=== PATIENT | male | born 1965 | race Caucasian/White ===

== ENCOUNTER 2021-04-28 08:44 | Day surgery (SDC) | payer OTHER ==
[2021-04-25 11:02] VITALS: BMI 30.1
[2021-04-28 09:11] VITALS: TEMP 97.8
[2021-04-28 12:02] VITALS: PULSE 86
[2021-04-28 12:59] VITALS: BP 110/65
== END 2021-04-28 12:35 | disposition home or self-care (01) ==
LOC: FASU-ENDO 08:44
PROVIDERS: ATTEND Internal Medicine Gastroenterology
PROC: 0DB98ZX Excision of Duodenum, Via Natural or Artificial Opening Endoscopic, Diagnostic (ICD-10-PCS; 2021-04-28)
PROC: 0DB68ZX Excision of Stomach, Via Natural or Artificial Opening Endoscopic, Diagnostic (ICD-10-PCS; 2021-04-28)
PROC: 0DJD8ZZ Inspection of Lower Intestinal Tract, Via Natural or Artificial Opening Endoscopic (ICD-10-PCS; principal; 2021-04-28 11:25)
DX: Z12.11 Encounter for screening for malignant neoplasm of colon (principal); K57.30 Diverticulosis of large intestine without perforation or abscess without bleeding; K29.50 Unspecified chronic gastritis without bleeding; R10.13 Epigastric pain
CPT/HCPCS: 88305-TC; 88342-TC